=== PATIENT | male | born 1960 | race Caucasian/White ===

== ENCOUNTER 2017-02-03 20:02 | Emergency (ER) | payer BC ==
--- NOTE | 2017-02-03 20:29 | UC ---
Bite Injury/Animal HPI - HPI Summary HPI Summary: 56 YEAR OLD MALE PRESENTS WITH COMPLAINS OF DOG BITE ON LEFT CALF. - History of Current Complaint Stated Complaint: DOG BITE Time Seen by Provider: 02/03/17 20:28 Hx Obtained From: Patient Severity Currently: Moderate Severity Initially: Moderate Pain Scale Used: 0-10 Numeric - 5 Onset/Duration: Sudden Onset Type of Bite: Animal Has Animal Been Immunized?: Yes Character: Puncture Alleviating Factor(s): Rest Associated Signs And Symptoms: Positive: Erythema Hx of Bite: Unprovoked Animal Available for Observation: Yes - Allergies/Home Medications Allergies/Adverse Reactions: Allergies Allergy/AdvReac Type Severity Reaction Status Date / Time Latex Allergy Mild Rash Verified 02/03/17 20:38 PMH/Surg Hx/FS Hx/Imm Hx Previously Healthy: Yes - Surgical History Surgical History: Yes Surgery Procedure, Year, and Place: CARDIAC ABLATION FOR AFIB 2010. RIGHT WRIST TENDON REPAIR A CHILD. vasectomy 2012 - Family History Known Family History: Positive: None Negative: Cardiac Disease, Hypertension, Diabetes - Social History Alcohol Use: Occasionally Substance Use Type: None Smoking Status (MU): Never Smoked Tobacco - Immunization History Most Recent Tetanus Shot: more than 10 years Review of Systems Constitutional: Negative Skin: Other - DOG BITE LEFT CALF Eyes: Negative ENT: Negative Respiratory: Negative Cardiovascular: Negative Gastrointestinal: Negative Genitourinary: Negative Motor: Negative Neurovascular: Negative Musculoskeletal: Negative Neurological: Negative Psychological: Negative All Other Systems Reviewed And Are Negative: Yes Physical Exam Triage Information Reviewed: Yes Vital Signs Reviewed: Yes Eye Exam: Normal ENT Exam: Normal Dental Exam: Normal Neck exam: Normal Neck: Positive: 1 Respiratory Exam: Normal Cardiovascular Exam: Normal Abdominal Exam: Normal Musculoskeletal Exam: Normal Neurological Exam: Normal Psychological Exam: Normal Skin: Positive: Other - LEFT CALF DOG BITE Bite Injury Course/Dx - Differential Dx/Diagnosis Provider Diagnoses: LEFT CALF DOG BITE Discharge - Discharge Plan Condition: Stable Disposition: HOME Prescriptions: Amoxicillin/Clavulanate TAB* [Augmentin TAB 875*] 875 mg PO BID #20 tab Patient Education Materials: Animal Bite (ED) Referrals: Eliu Barboza MD [Primary Care Provider] -
[2017-02-03 20:38] VITALS: BP 137/97
[2017-02-03] MEDS ORDERED: Tetan/Diph/Pertus SYR(Tdap)* 0.5 ML SYR(BOOSTRIX) use SYR IM ONE (20:39)
[2017-02-03] MEDS ORDERED: Amoxicillin/Clavulanate TAB* 875 MG PO ONE (20:52)
== END 2017-02-03 21:20 | disposition home or self-care (01) ==
LOC: UCEAST 20:02
DX: S81.852A Open bite, left lower leg, initial encounter (principal); W54.0XXA Bitten by dog, initial encounter; Y92.9 Unspecified place or not applicable; Z91.040 Latex allergy status
CPT/HCPCS: 99212; A9270-GY; G0463